=== PATIENT | male | born 1955 | race Caucasian/White ===

== ENCOUNTER 2017-10-03 06:51 | Day surgery (SDC) | payer BC, OTHER ==
[2017-10-03] MEDS ORDERED: Lidocaine 1% w/Epinephrine 1:200K 30 ML VIAL ONE (09:17)
[2017-10-03] MEDS ORDERED: Bacitracin Zinc Ointment 30 gm TUBE ONE (09:17)
[2017-10-03] MEDS ORDERED: Midazolam HCl 2 mg/2 ml Vial ONE (09:23)
[2017-10-03] MEDS ORDERED: Fentanyl 100 MCG/2 ML VIAL ONE (09:23)
[2017-10-03] MEDS ORDERED: ePHEDrine/0.9% NaCl/PF SYRINGE 50 mg/10 ml ONE (15:46)
--- NOTE | 2017-10-04 11:42 | OP ---
PREOPERATIVE DIAGNOSIS: Left temporal basal cell carcinoma. POSTOPERATIVE DIAGNOSIS: Left temporal basal cell carcinoma. PROCEDURES: Wide local excision of left temporal basal cell carcinoma with local regional flap (rhom botemo) closure. SURGEON: Rashi Mera M.D. ESTIMATED BLOOD LOSS: 20 mL COMPLICATIONS: None. ANESTHESIA: IV. PROCEDURE IN DETAIL: The patient was taken to the operating room and placed supine on the table. IV anesthesia was obtained, and a 1 cm margin around this area was marked, and then the patient was mar ked for a local regional tissue transfer of up to 6 cm of tissue adjacent to this area on the left te mporal. Rhomboid flap was outlined. The edges of the flap were then incised, and the incisions of t he flap were then made using a 10 blade down to the pericranial layer. Following this, the flap was elevated, margins were taken were noted to be clear of any residual lesions, and the flap was rotated into its correct position, and stitches were used a 4-0 and 3-0 Monocryl to close the galea and subc utaneous tissue. The skin was then closed using Prolene stitches. The patient tolerated the procedu re well.
== END 2017-10-03 11:50 | disposition home or self-care (01) ==
LOC: SDC 06:51
PROVIDERS: ATTEND Otolaryngology Plastic Surgery within the Head & Neck
PROC: 0HX1XZZ Transfer Face Skin, External Approach (ICD-10-PCS; principal; 2017-10-03)
DX: C44.319 Basal cell carcinoma of skin of other parts of face (principal); M10.9 Gout, unspecified; E11.9 Type 2 diabetes mellitus without complications; I10 Essential (primary) hypertension; H81.02 Meniere's disease, left ear; Z79.84 Long term (current) use of oral hypoglycemic drugs; Z79.02 Long term (current) use of antithrombotics/antiplatelets; Z79.82 Long term (current) use of aspirin; Z79.899 Other long term (current) drug therapy; Z88.8 Allergy status to other drugs, medicaments and biological substances; Z95.1 Presence of aortocoronary bypass graft; Z90.89 Acquired absence of other organs; Z98.818 Other dental procedure status; Z98.890 Other specified postprocedural states
CPT/HCPCS: 88305; 88331; 93005; 93010; J2250; J3010